=== PATIENT | male | born 1975 | race Caucasian/White ===

== ENCOUNTER 2017-03-18 07:44 | Emergency (ER) | payer BC ==
[2017-03-18 07:54] VITALS: BP 109/75; PULSE 75; RESP 18; TEMP 97.3
[2017-03-18] MEDS ORDERED: RX INFO: IV CONTRAST WAS GIVEN 1 EACH MISC MISCELLANE PRN (08:25)
[2017-03-18] MEDS ORDERED: SODIUM CHLORIDE 0.9% 500 ML IV ONE (08:26)
--- NOTE | 2017-03-18 09:01 | ED ---
General Adult HPI - General Chief complaint: Neck Pain/Injury Stated complaint: neck pain Time Seen by Provider: 03/18/17 08:15 Source: patient, RN notes reviewed Mode of arrival: ambulatory Limitations: no limitations - History of Present Illness Initial comments: This is a 41-year-old male presents emergency Department with chief complaint of right-sided neck pain, swelling. Patient states started a few days ago. Patient states that he had prior surgery on the right side of his neck by ENT. Patient states that he had surgery approximately one to 2 years ago and had a benign mass. Patient states he did not know exactly what this was. Patient states that he felt like he turned is not other day states that he felt a pop. Patient states ever since that he's had some swelling. Patient denies any fever , chills no posterior neck pain or stiffness. Patient denies any headache or dizziness. Denies any sore throat, dental pain. Denies any trismus. - Related Data Previous Rx's Medication Instructions Recorded Acetaminophen-Codeine 300-30mg 1 tab PO Q4H PRN #20 tablet 03/18/17 [Tylenol #3] Amoxicillin/Potassium Clav 1 tab PO Q12HR #20 tab 03/18/17 [Augmentin 875-125 Tablet] Ibuprofen [Motrin] 600 mg PO Q8HR PRN #30 tab 03/18/17 Allergies Allergy/AdvReac Type Severity Reaction Status Date / Time No Known Allergies Allergy Verified 03/18/17 08:08 Review of Systems ROS Statement: Those systems with pertinent positive or pertinent negative responses have been documented in the HPI. ROS Other: All systems not noted in ROS Statement are negative. Past Medical History Past Medical History: No Reported History Additional Past Medical History / Comment(s): Pt states he had a mass removed from the right side of his neck, was not cancerous History of Any Multi-Drug Resistant Organisms: None Reported Past Surgical History: No Surgical Hx Reported Additional Past Surgical History / Comment(s): mass removed from neck Additional Past Anesthesia/Blood Transfusion Reaction / Comment(s): never had anesthesia, no family problems Past Psychological History: Anxiety Smoking Status: Former smoker Past Alcohol Use History: None Reported Past Drug Use History: None Reported - Past Family History Mother Family Medical History: No Reported History General Exam Limitations: no limitations General appearance: alert, in no apparent distress Head exam: Present: atraumatic, normocephalic, normal inspection Eye exam: Present: normal appearance, PERRL, EOMI. Absent: scleral icterus, conjunctival injection, periorbital swelling ENT exam: Present: normal exam, normal oropharynx, mucous membranes moist, TM's normal bilaterally, normal external ear exam Neck exam: Present: tenderness (Mild right-sided), full ROM. Absent: normal inspection (There is mild swelling noted the right side of the neck with previous old surgical incision.), meningismus, lymphadenopathy Respiratory exam: Present: normal lung sounds bilaterally. Absent: respiratory distress, wheezes, rales, rhonchi, stridor Cardiovascular Exam: Present: regular rate, normal rhythm, normal heart sounds. Absent: systolic murmur, diastolic murmur, rubs, gallop, clicks Neurological exam: Present: alert, oriented X3, CN II-XII intact Skin exam: Present: warm, dry, intact, normal color. Absent: rash Course Vital Signs 03/18/17 07:51 Temperature 97.3 F L Pulse Rate 75 Respiratory 18 Rate Blood Pressure 109/75 O2 Sat by Pulse 96 Oximetry Medical Decision Making - Medical Decision Making 41-year-old male present emergency department with chief complaint of right- sided swelling. Patient has multiple lymph nodes on CT and CT and x-rays show emphysematous changes of the lungs. Patient was a former smoker. I did advise him that he should follow up with his PCP or second baller. Patient is requesting to see a new ENT for his neck patient will be provided Dr. Rudolph' s phone number. - Lab Data Result diagrams: 03/18/17 08:50 03/18/17 08:50 Lab Results 03/18/17 03/18/17 Range/Units 08:50 08:50 WBC 7.8 (3.8-10.6) k/uL RBC 5.00 (4.30-5.90) m/uL Hgb 15.5 (13.0-17.5) gm/dL Hct 47.1 (39.0-53.0) % MCV 94.3 (80.0-100.0) fL MCH 31.1 (25.0-35.0) pg MCHC 33.0 (31.0-37.0) g/dL RDW 14.1 (11.5-15.5) % Plt Count 386 (150-450) k/uL Neutrophils % 53 % Lymphocytes % 35 % Monocytes % 6 % Eosinophils % 4 % Basophils % 0 % Neutrophils # 4.1 (1.3-7.7) k/uL Lymphocytes # 2.8 (1.0-4.8) k/uL Monocytes # 0.5 (0-1.0) k/uL Eosinophils # 0.3 (0-0.7) k/uL Basophils # 0.0 (0-0.2) k/uL Sodium 142 (137-145) mmol/L Potassium 4.7 (3.5-5.1) mmol/L Chloride 107 (98-107) mmol/L Carbon Dioxide 25 (22-30) mmol/L Anion Gap 10 mmol/L BUN 20 (9-20) mg/dL Creatinine 0.95 (0.66-1.25) mg/dL Est GFR (MDRD) Af Amer >60 (>60 ml/min/1.73 sqM) Est GFR (MDRD) Non-Af >60 (>60 ml/min/1.73 sqM) Glucose 84 (74-99) mg/dL Calcium 9.7 (8.4-10.2) mg/dL Disposition Clinical Impression: Cervical lymphadenopathy, Emphysema lung Disposition: HOME SELF-CARE Condition: Stable Instructions: Lymphadenopathy (ED) Additional Instructions: Please return to the Emergency Department if symptoms worsen or any other concerns. Prescriptions: Acetaminophen-Codeine 300-30mg [Tylenol #3] 1 tab PO Q4H PRN #20 tablet PRN Reason: pain Amoxicillin/Potassium Clav [Augmentin 875-125 Tablet] 1 tab PO Q12HR #20 tab Ibuprofen [Motrin] 600 mg PO Q8HR PRN #30 tab PRN Reason: Pain Referrals: Davonte Robertson III, MD [Primary Care Provider] - 1-2 days Jimmie Rudolph MD [STAFF PHYSICIAN] - 1-2 days Time of Disposition: 10:22
[2017-03-18 09:34] LABS: Basophils % (A) 0 %; CH 32.5; CHCM 34.8; Eosinophils # (A) 0.3 k/uL (0-0.7); Eosinophils % (A) 4 %; HCT 47.1 % (39.0-53.0); HDW 2.74; HGB 15.5 gm/dL (13.0-17.5); Luc # (Auto) 0.13; Luc % (Auto) 2; Lymphocytes # (A) 2.8 k/uL (1.0-4.8); Lymphocytes % (A) 35 %; MCH 31.1 pg (25.0-35.0); MCV 94.3 fL (80.0-100.0); Mean Platelet Volume 6.7; Monocytes # (A) 0.5 k/uL (0-1.0); Monocytes % (A) 6 %; Neutrophils # (A) 4.1 k/uL (1.3-7.7); Neutrophils % (A) 53 %; RDW 14.1 % (11.5-15.5); WBC 7.8 k/uL (3.8-10.6); WBC (Perox) 7.43
--- NOTE | 2017-03-18 09:44 | CT ---
EXAMINATION TYPE: CT soft tissue neck w con DATE OF EXAM: 03/18/2017 COMPARISON: 11/29/2015 HISTORY: Right sided neck pain. Mass removed 2 years ago. Swollen and painful today CT DLP: 530 mGycm CONTRAST: CT scan of the neck is performed with IV Contrast, patient injected with 100 ml mL of Omnipaque 300. Contrast enhanced CT of the neck was performed from the skull base through the lung apices. AIRWAY: The supraglottic, glottic, and subglottic portions of the airway appear patent and free of mass. SALIVARY GLANDS: The submandibular and parotid glands are free of mass or inflammatory process. THYROID GLAND: No nodules or masses seen. LYMPH NODES: 2 lymph node masses are detected within the region of the posterolateral right neck abdifatah uring 2 cm and 1.1 cm previously versus a 1.7 cm and 1 cm previously. Additional right supraclavicula r lymph nodes measure 1.1 cm and 0.7 cm respectively. LUNG APICES: Severe upper lobe emphysematous change identified. OTHER: Vascular structures are patent. No significant degenerative change of the cervical spine. N o abscess seen. IMPRESSION: 1. Adenopathy posterior to the right sternocleidomastoid musculature at the site of clinical concern as well as within the supraclavicular region. 2. Severe upper lobe emphysematous change.
[2017-03-18 10:06] LABS: Anion Gap 10 mmol/L; Blood Urea Nitrogen 20 mg/dL (9-20); Calcium 9.7 mg/dL (8.4-10.2); Carbon Dioxide 25 mmol/L (22-30); Chloride 107 mmol/L (98-107); Glucose 84 mg/dL (74-99); Non-African American GFR(MDRD) >60 (>60 ml/min/1.73 sqM); Potassium 4.7 mmol/L (3.5-5.1); Sodium 142 mmol/L (137-145)
--- NOTE | 2017-03-18 10:14 | XR ---
EXAMINATION TYPE: XR chest 1V DATE OF EXAM: 03/18/2017 COMPARISON: CT neck earlier today. Older CT neck study November 29, 2015. HISTORY: Chest pain per order. Right sided neck swelling. TECHNIQUE: Single AP portable frontal upright view of the chest is obtained. FINDINGS: There is redemonstration of emphysematous change with bullous change in the right upper lob e redemonstrated and bleb and bulla formation left lung apex seen. There is right infrahilar opacity favoring scarring, some patchy acute infiltrate is difficult to exclude without prior chest x-ray co mparison. No large pleural effusion is present bilaterally. The cardiac silhouette size is within no rmal limits. The osseous structures are intact. IMPRESSION: Advanced emphysematous change with right infrahilar opacity favoring scarring noted.
== END 2017-03-18 10:36 | disposition home or self-care (01) ==
LOC: EC 07:44
DX: R59.0 Localized enlarged lymph nodes (principal); J43.9 Emphysema, unspecified; Z87.891 Personal history of nicotine dependence; Z98.890 Other specified postprocedural states
CPT/HCPCS: 36415; 80048; 85025; 71010; 70491; 99284; 96360; Q9967

== ENCOUNTER 2017-04-03 09:46 | Observation (INO) | payer BC ==
[2017-03-31 09:51] VITALS: BMI 21.2
--- NOTE | 2017-04-03 06:26 | HP ---
HISTORY AND PHYSICAL CHIEF COMPLAINT: Right neck mass. HISTORY OF PRESENT ILLNESS: This patient is a 41-year-old male, who was recently seen in my office complaining of a lump in the right side of his neck. This was originally a patient of Dr. Norris who had previously operated on this area and removed a mass which apparently was benign. However this mass has come back since that surgery. At that time, the patient was seen in my office. The patient stated that after the surgery he had some numbness in the area and that since that time, he has had slight difficulty swallowing and various aches with respect to his neck. He is a former smoker. Quit smoking in 2014 which is approximately the time that he developed a mass in the right side of his neck. He states that the mass came back approximately 5 or [address] scan was ordered by his family physician which showed evidence of severe upper lobe emphysema and a mass located posterior to the right sternomastoid muscle. The patient was quite concerned about this mass and wanted to have it excised. Therefore the patient is scheduled to have excision of right neck mass under general anesthesia. PAST MEDICAL HISTORY: Reveals he has no allergies to medications. He is not currently on any medications. Only previous surgery was excision of a right neck mass by Dr. Norris. There is no history of asthma, diabetes mellitus or hypertension. As noted on his CT scan, there is severe upper lobe emphysema but the patient is not on any medications at present. REVIEW OF SYSTEMS: Is completely unremarkable. PHYSICAL EXAMINATION: The patient is a 41-year-old male, who was alert and cooperative. HEENT examination patient is normocephalic. Tympanic membranes are normal. Middle ear spaces are free of any fluid or infection. Pupils equal, round, react to light and accommodation. Extraocular movements are within normal limits. Intranasal examination reveals moderate to severe septal deviation with compensatory hypertrophy of the inferior turbinates and a moderate amount of mucus on the mucous membranes and draining down the posterior pharynx. Palpation of the neck reveals the patient has a 1 and half to 2 cm well circumscribed mobile mass which is located near the anterior cervical chain just anterior to the right sternomastoid muscle. There appeared to be several other small involved lymph nodes located more posteriorly and also inferiorly near the sternum on the right. There is no tenderness to palpation. No fluctuance. There is a scar from a previous incision in this area which is noted. Cranial nerves 2-12 and the remainder of the head and neck exam is completely unremarkable. Chest cardiovascular both lung gomez are clear to percussion and auscultation. The patient in regular sinus rhythm S1, S2 are present. No murmurs, S3s or S4. Peripheral pulses are bilaterally symmetrical and within normal limits. Abdomen there is no evidence of any masses, megaly, or tenderness. ABDOMEN: Soft. Skin is unremarkable. Musculoskeletal and neurological all within normal limits. Rectal examination is deferred at this time because the patient has done on a regular basis at his family physician's office. IMPRESSION: Right neck mass. PLAN: The patient is scheduled to undergo excision of right neck mass under general anesthesia in the a.m. Attention RNs in the pre-surgical area, the only pre-surgical antibiotics I have ordered for this patient to receive is Ancef 2 g IV once an intravenous line has been established. If the pharmacy department sends any other pre-surgical antibiotic other than Ancef for this patient to the pre-surgical area, those orders should be cancelled and that medication should be returned to the pharmacy department. Make sure that the patient's account is credited appropriately. Again the only pre-surgical antibiotics that I have ordered is Ancef and any other orders for pre-surgical antibiotics have been and should be cancelled. In addition, I have requested that this patient receive 1000 mg of Ofirmev IV once an intravenous line has been established. I have discussed the risks, benefits and alternative therapies for the above-mentioned procedure and for both sedation/analgesia as well as necessary blood product administration, if indicated, as they pertain to this patient. The patient has indicated his or her understanding and acceptance of the risks and procedures discussed. MMODL / IJN: [id number] /
[~2017-04-03 09:46] MED LIST: DEXAMETHASONE SOD PHOSPHATE 10 MG/ML 1 ML VIAL IV ONE; HYDROmorphone 0.5 MG/0.5 ML SYRINGE IVP PRN; LACTATED RINGERS 1,000 ML IV SCH; MIDAZOLAM 2 MG/2 ML VIAL IV PRN; NALOXONE 0.4 MG/ML 1 ML VIAL IV PRN; ONDANSETRON 4 MG/2 ML VIAL IVP ONE; Pre Op ABX Message 1 EACH MISC MISCELLANE ONE; SCOPOLAMINE 1.5MG/72HR PATCH TRANSDERM ONE
[2017-04-03] MEDS ORDERED: LIDOCAINE 1% 20 ML VIAL (10MG/ML) FOR IV START INTRADERMA ONE (10:24)
[2017-04-03] MEDS ORDERED: ACETAMINOPHEN IV (For NPO) 1,000 MG in EMPTY BAG 1 BAG IVPB ONE (10:55)
[2017-04-03] MEDS ORDERED: ceFAZolin 2 GM in SODIUM CHLORIDE 0.9% 100 ML IVPB ONE (10:55)
[2017-04-03] MEDS ORDERED: MIDAZOLAM 2 MG/2 ML VIAL ONE (11:25)
[2017-04-03] MEDS ORDERED: HYDROmorphone (PF) 1 MG/ML ONE (11:25)
[2017-04-03] MEDS ORDERED: SUCCINYLCHOLINE CHLORIDE 100 MG/5 ML SYR IV ONE (11:25)
[2017-04-03] MEDS ORDERED: PROPOFOL 10 MG/ML 20 ML VIAL IV ONE (11:25)
[2017-04-03] MEDS ORDERED: LIDOCAINE 1% INJ 10MG/ML (20 ML MDV) ONE (11:25)
[2017-04-03] MEDS ORDERED: fentaNYL (PF) 50 MCG/ML 2 ML AMP ONE (11:25)
[2017-04-03] MEDS ORDERED: LACTATED RINGERS 1,000 ML IV ONE (13:22)
[2017-04-03] MEDS ORDERED: BACITRACIN 500 UNIT/GM OINT 28.4 GM TUBE TOPICAL ONE (13:56)
[2017-04-03] MEDS ORDERED: ONDANSETRON 4 MG/2 ML VIAL IVP PRN (16:00)
[2017-04-03] MEDS: ACETAMINOPHEN IV (For NPO) 1,000 MG in EMPTY BAG 1 BAG IVPB SCH ×2 (17:42→21:29)
[2017-04-03] MEDS: HYDROmorphone PCA 5 MG/25 ML SYRINGE IV PRN (19:37)
[2017-04-03] MEDS: LACTATED RINGERS 1,000 ML IV SCH (20:09)
[2017-04-03] MEDS: ceFAZolin 2 GM in SODIUM CHLORIDE 0.9% 100 ML IVPB SCH (21:29)
[2017-04-03] MEDS ORDERED: TEMAZEPAM 30 MG CAP PO PRN (22:00)
--- NOTE | 2017-04-03 22:59 | OP ---
OPERATIVE REPORT DATE OF SURGERY: 04/03/2017. PREOPERATIVE DIAGNOSIS:: Right neck mass. POSTOPERATIVE DIAGNOSIS:: Right neck mass, final pathology pending. OPERATION:: Excision of right neck mass greater than 3 cm. ESTIMATED BLOOD LOSS:: 25-30 mL. SPECIMEN TAKEN: Multiple pieces, specimen sent to Pathology in formalin for permanent sectioning. ESTIMATED START TIME: 11:57. ESTIMATED COMPLETION TIME: 2:57. TOTAL TIME: Approximately 3 hours. ANESTHESIA: General. OPERATING SURGEON: Dr. Rudolph. NARRATIVE:: The patient was placed on operating table in supine position and after uneventful induction of endotracheal intubation, satisfactory general anesthesia was obtained. Next, the patient's right dayana-face and neck were prepped in the usual and customary fashion. Following this, the area in question was palpated and the mass was located. There was there had been a previous excision of a mass in this area and it was noted that there was a significant amount of scar tissue present. Therefore, using a Codman marking pen, it was elected to excise this scar tissue-bearing skin by outlining the proposed incision in an elliptical fashion so that the scar tissue was included. Next, using a #15 scalpel blade, an incision was made through skin down to the level of the subcutaneous fat only, following the outline that had been previously made with the Codman marking pen. This effectively contained all of the scar tissue and this was removed by sharp dissection using the #15 scalpel blade to remove the skin only down to the level of subcutaneous tissue/subcutaneous fat. This specimen was discarded. Continuing on with the incision, this was completed by going through the subcutaneous fat until a heavy amount of scar tissue was encountered. Because I had not been the original operating surgeon, it was difficult to tell what procedure had actually been followed and therefore care was taken with incising the scar tissue because it was unknown whether this contained the underlying platysmal muscle or not. This scar tissue was sharply incised with a #15 scalpel and the usual superior-inferior flaps were created in a sharp fashion. Having done this, this exposed the sternal mastoid muscle, which was noted to be bulging upward from the underlying mass. It was decided that better exposure would be obtained by simply splitting the sternal mastoid muscle as opposed to trying to retracted it or even transect it. Therefore, using a pair of mosquito hemostats, the muscle fibers were split and almost immediately the mass in question came into view. It was surrounded by a superficial amount of fascia. By grasping the fascia with a pair Brown forceps and pulling upward, a mosquito hemostat was able to be used to dissect around the mass in question. Because of its location, care was taken because of concern of the underlying nerves; namely, the accessary nerve and possibly the marginal mandibular nerve. It is assumed that the greater auricular nerve had previously been transected from the first surgery because the patient was having numbness of the right ear. The muscle fibers were split and retracted and the entire mass was exposed and appeared to be lobulated and composed of multiple sections. Therefore, using blunt dissection with a pair of dull mosquito hemostats and also peanut pushers, the mass in question was removed with minimal bleeding and appeared to consist of approximately 6 pieces. These were all placed in formalin and sent to Pathology for permanent sectioning. Dissection was quite slow and tedious because of the excessive scar tissue from the previous surgery and this is the reason for the extended length of the procedure, which normally would have taken less than 90 minutes. The dissection was carried down to the level of the scalene muscles, but no further. Medially, the dissection was not carried beyond the level of the internal jugular vein, and therefore the carotid sheath was not encountered. Dissection was carried out medially, laterally, superiorly and inferiorly until the entire mass was excised and all portions were sent to Pathology in formalin. It was noted that there appeared to be multiple lymph nodes associated with this mass, but they were quite small and a few of these were sampled, but again because of concern of the surrounding nerves, no more than a few of these nodes were sampled. The anatomy appeared to be somewhat distorted because of the previous surgery. Despite this, there was only minimal bleeding, which was controlled mainly with pressure. Having removed the mass in question and it appeared that the wound was sufficiently dry, a 1/8-tgppgpv-lyow Darius drain was inserted into the wound defect and secured to the skin with a 4-0 nylon suture. The wound defect was closed by beginning with closure of the muscle fibers using 4-0 rapid- absorbing Vicryl in an interrupted fashion. Next, the few platysmal muscle fibers that were encountered were approximated using 4-0 rapid-absorbing Vicryl in an interrupted fashion. Next, the subcutaneous tissues were approximated using 4-0 rapid-absorbing Vicryl in interrupted fashion and then the skin itself was approximated using 4-0 rapid- absorbing Vicryl in a subcutaneous fashion. Care was taken not to snag the Darius drain with any of the suture material. Finally, the skin edges were carefully approximated using the surgical staple gun in the usual fashion. The edges were approximated quite nicely and again, the previous scar tissue had been completely excised. Estimated blood loss was between 25 and 30 mL. At this point, the procedure was terminated. There were no intraoperative complications. The appropriate neck dressing was applied. Estimated start time was 11:57. Estimated in time was 2:57 for a total operating time of 3 hours. This procedure normally would take approximately 90 minutes, but because of the extensive scar tissue from the previous surgery and because of the depth of the mass and concern about surrounding important neural structures, dissection was extremely slow and tedious. The patient tolerated procedure well and was returned to the recovery room in satisfactory condition. LUANL / DAPHNEN: [id number] /
[2017-04-04] MEDS: ACETAMINOPHEN IV (For NPO) 1,000 MG in EMPTY BAG 1 BAG IVPB SCH ×2 (04:03→11:09)
[2017-04-04] MEDS: HYDROmorphone PCA 5 MG/25 ML SYRINGE IV PRN ×2 (04:52→12:39)
[2017-04-04] MEDS: LACTATED RINGERS 1,000 ML IV SCH (06:04)
[2017-04-04] MEDS: ceFAZolin 2 GM in SODIUM CHLORIDE 0.9% 100 ML IVPB SCH ×2 (06:05→14:55)
[2017-04-04 08:03] VITALS: BP 102/50; PULSE 65; RESP 16; TEMP 98.2
== END 2017-04-04 14:40 | disposition home or self-care (01) ==
LOC: OR 09:46 → 3OBS 14:14 → OR 04-04 01:39
PROVIDERS: ADMIT Otolaryngology; ATTEND Otolaryngology
DX: C81.41 Lymphocyte-rich Hodgkin lymphoma, lymph nodes of head, face, and neck (principal); Z87.891 Personal history of nicotine dependence
CPT/HCPCS: 21556; 88305; 88342; 88341; G0378; J2250; J1100; J0690 ×2; J2405; J2001; J3010; J1170 ×3; J0131 ×2; J0330; J2704

== ENCOUNTER 2017-07-15 11:08 | Day surgery (SDC) | payer BC ==
[2017-07-14 09:17] VITALS: BMI 20.7
[~2017-07-15 11:08] MED LIST changes: -DEXAMETHASONE SOD PHOSPHATE 10 MG/ML 1 ML VIAL IV ONE; -HYDROmorphone 0.5 MG/0.5 ML SYRINGE IVP PRN; -LACTATED RINGERS 1,000 ML IV SCH; -MIDAZOLAM 2 MG/2 ML VIAL IV PRN; -NALOXONE 0.4 MG/ML 1 ML VIAL IV PRN; -ONDANSETRON 4 MG/2 ML VIAL IVP ONE; -Pre Op ABX Message 1 EACH MISC MISCELLANE ONE; -SCOPOLAMINE 1.5MG/72HR PATCH TRANSDERM ONE; +TRIAMCINOLONE ACETONIDE 40 MG/ML 1 ML VIAL ONE
[2017-07-15 11:31] VITALS: BP 118/73; PULSE 70; RESP 20; TEMP 97
[2017-07-15] MEDS ORDERED: IODIXANOL 320 MG/ML 100 ML IV ONE (12:00)
[2017-07-15] MEDS ORDERED: HEPARIN SODIUM,PORCINE 100 UNIT/ML 5 ML VIAL IV ONE (12:13)
--- NOTE | 2017-07-15 12:13 | IR ---
Port-A-Cath check HISTORY: Trauma to fourth, evaluate function Real-time fluoroscopy shows the port to be intact. 181 intraoperative images document the procedure, 0.2 minutes fluoroscopy time Gentle hand injection of radiographic contrast shows a patent catheter. Contrast courses from the dis sylvia tip of the catheter. There is no extravasation. IMPRESSION: Port-A-Cath is patent
== END 2017-07-15 12:15 | disposition home or self-care (01) ==
LOC: CATHCVL 11:08
PROVIDERS: ATTEND Radiology Diagnostic Radiology
DX: T85.618A Breakdown (mechanical) of other specified internal prosthetic devices, implants and grafts, initial encounter (principal)
CPT/HCPCS: 36598; J1642; Q9967

== ENCOUNTER → 2017-08-20 | Outpatient (CLI) | payer BC ==
--- NOTE | 2017-08-21 10:48 | ECHOF ---
Referral Reason:C81.91 Lymphoma Z01.818 Chemo Exposure MEASUREMENTS -------- HEIGHT: 175.3 cm WEIGHT: 64.9 kg BP: 119/79 RVIDd: 2.8 cm (< 3.3) IVSd: 1.1 cm (0.6 - 1.1) LVIDd: 3.7 cm (3.9 - 5.3) LVPWd: 1.0 cm (0.6 - 1.1) IVSs: 1.5 cm LVIDs: 1.6 cm LVPWs: 1.9 cm LAESV Index (A-L): 16.82 ml/m Ao Diam: 3.4 cm (2.0 - 3.7) AV Cusp: 2.2 cm (1.5 - 2.6) LA Diam: 2.6 cm (2.7 - 3.8) MV EXCURSION: 26.356 mm (> 18.000) MV EF SLOPE: 200 mm/s (70 - 150) EPSS: 0.3 cm MV E Ismael: 0.57 m/s MV DecT: 313 ms MV A Ismael: 0.67 m/s MV E/A Ratio: 0.86 RAP: 5.00 mmHg RVSP: 19.88 mmHg FINDINGS -------- Sinus rhythm. This was a technically good study. The left ventricular size is normal. There is borderline concentric left ventricular hypertrophy. Overall left ventricular systolic function is normal with, an EF between 55 - 60 %. The right ventricle is normal in size and function. Normal LA size by volume 22+/-6 ml/m2. The right atrium is normal in size. The aortic valve is trileaflet, and appears structurally normal. No aortic stenosis or regurgitation. The mitral valve leaflets are mildly thickened. There is trace mitral regurgitation. Trace tricuspid regurgitation present. Right ventricular systolic pressure is normal at < 35 mmHg. There is no evidence of pulmonary hypertension. The pulmonic valve is normal. The aortic root size is normal. Normal inferior vena cava with normal inspiratory collapse consistent with estimated right atrial pre ssure of 5 mmHg. There is no pericardial effusion. CONCLUSIONS -------- 1. Sinus rhythm. 2. This was a technically good study. 3. The left ventricular size is normal. 4. There is borderline concentric left ventricular hypertrophy. 5. Overall left ventricular systolic function is normal with, an EF between 55 - 60 %. 6. Normal LA size by volume 22+/-6 ml/m2. 7. The aortic valve is trileaflet, and appears structurally normal. No aortic stenosis or regurgitati on. 8. The mitral valve leaflets are mildly thickened. 9. There is trace mitral regurgitation. 10. Trace tricuspid regurgitation present. 11. Right ventricular systolic pressure is normal at < 35 mmHg. 12. There is no evidence of pulmonary hypertension. 13. The aortic root size is normal. 14. There is no pericardial effusion. TOMOGRAPHIC TECH: David Chandler RDCS
== END | disposition home or self-care (01) ==
LOC: RADECHMAIN 16:20
PROVIDERS: ATTEND Internal Medicine Hematology & Oncology
DX: C81.91 Hodgkin lymphoma, unspecified, lymph nodes of head, face, and neck (principal); I51.7 Cardiomegaly; I34.8 Other nonrheumatic mitral valve disorders; Z01.818 Encounter for other preprocedural examination
CPT/HCPCS: 93306

== ENCOUNTER → 2017-08-22 | Outpatient (CLI) | payer BC ==
--- NOTE | 2017-08-23 14:43 | PE ---
EXAMINATION TYPE: PET CT fusion skull to thigh DATE OF EXAM: 08/22/2017 COMPARISON: CT neck 03/18/2017 Prior PET/CT: 04/25/2017 HISTORY: Lymphoma TECHNIQUE: Following the intravenous administration of 13.181 mCi of F-18 FDG, whole body images are performed from the skull base to the midthigh. Images are reviewed on the computer in the coronal, axial, and sagittal planes. Reconstructed rotating images are created on independent workstation and reviewed on the computer. A localization and attenuation correction CT is performed in conjunction with the PET scan. DLP: 247.30 mGycm SCAN: Subsequent follow-up Blood glucose: 95 mg/dL Average Mediastinum SUV: 1.4 Average Liver SUV: 1.89 FINDINGS: NECK: There is some left retrobulbar focal radiotracer accumulation measuring 4.2. This could be mis registration with nearby brain. The patient is within the Gantry asymmetrically Abnormal uptake is not otherwise identified within the neck. THORAX: No abnormal uptake ABDOMEN: No abnormal uptake PELVIS: No abnormal uptake OSSEOUS STRUCTURES: No abnormal uptake LOCALIZATION CT: Previous uptake within the neck has resolved without residual. Suspicious adenopathy is not identified. COMPARISON: Previous right neck uptake is not identified. In retrospect the retrobulbar uptake was pr esent. IMPRESSION: 1. Resolution of previous right neck adenopathy with radiotracer uptake. No suspicious uptake to sugg est residual or recurrent lymphoma is identified. 2. Uptake within the posterior orbits is likely misregistration or muscular activity and appears noy lar to previous exam.
== END | disposition home or self-care (01) ==
LOC: RADPETMAIN 07:47
PROVIDERS: ATTEND Internal Medicine Hematology & Oncology
DX: C81.91 Hodgkin lymphoma, unspecified, lymph nodes of head, face, and neck (principal)
CPT/HCPCS: 78815; A9552